=== PATIENT | male | born 1950 | race Asian ===

== ENCOUNTER 2016-10-19 04:05 | Inpatient (IN) | payer BC, MEDICAID ==
[~2016-10-19] VITALS: Ht 154.9 cm; Wt 86.2 kg
[~2016-10-19 04:05] MED LIST: AMLO10TA PO; ATOR20TA PO; COZ50 PO; GABA100C PO; METH500T14 PO; METO100T98 PO; PIOG30TA PO; RANI-287 PO
[2016-10-19 04:15] VITALS: BP 125/73
--- NOTE | 2016-10-19 04:30 | NUR ---
PT IS 66/M BIB TO ED WITH C/O DIZZINESS WITH NAUSEA X 1 HR. AFTER GET UP FROM BED, HAVING DIZZINESS WITH NAUSEA.PT STATES MED HX. HTN, DM.. DENIES V/D; SKIN IS PINK/WARM/DRY; AAOX4 WITH EVEN AND STEADY GAIT; LUNGS CLEAR BL; HR EVEN AND REGULAR; PT DENIES ANY FEVER, CP, SOB, OR COUGH AT THIS TIME; PATIENT STATES PAIN OF 4/10 AT THIS TIME; VSS; PATIENT POSITIONED FOR COMFORT; HOB ELEVATED; BEDRAILS UP X2; BED DOWN. ER MD MADE AWARE OF PT STATUS.
[2016-10-19] MEDS ORDERED: ONDANSETRON 4 MG/2 ML VIAL IVP ONE (04:45)
[2016-10-19] MEDS ORDERED: NACL 0.9% 1,000 ML IV ONE (04:45)
[2016-10-19 05:01] LABS: EOSINOPHILS # (AUTO) 0.3 K/uL (0-0.4); RED BLOOD CELL COUNT(AUTO) 2.85 MIL/uL (4.20-6.10)
[2016-10-19 05:06] LABS: BASOPHILS # (AUTO) 0.2 K/uL (0.00-0.22); BASOPHILS % (AUTO) 2.3 % (0.0-2.0); EOSINOPHILS % (AUTO) 3.4 % (0.0-4.0); LYMPHOCYTES # (AUTO) 1.5 K/uL (2.0-11.5); LYMPHOCYTES % (AUTO) 17.3 % (20.5-51.1); MEAN CORPUSCULAR HEMOGLOBIN 21 pg (27-31); MEAN CORPUSCULAR HGB CONC 31 g/dL (33-37); MEAN CORPUSCULAR VOLUME 67 fL (80-94); MONOCYTES # (AUTO) 0.4 K/uL (0.8-1.0); MONOCYTES % (AUTO) 5.2 % (1.7-9.3); NEUTROPHILS # (AUTO) 6.1 K/uL (1.8-7.7); NEUTROPHILS % (AUTO) 71.8 % (42.2-75.2); PLATELET COUNT (AUTO) 327 K/uL (140-450); RED CELL DISTRIBUTION WIDTH 18.9 % (11.6-13.7); WHITE BLOOD COUNT (AUTO) 8.5 K/uL (4.8-10.8)
--- NOTE | 2016-10-19 05:29 | NUR ---
PT TAKEN OFF THE UNIT VIA GURNEY TO CT WITH GENERAL UTILITY MAINTENANCE REPAIRER.
[2016-10-19 05:34] LABS: HEMATOCRIT 19.2 % (36-52)
[2016-10-19 05:45] LABS: CREATINE KINASE MB 0.7 ng/mL (0-3.6)
[2016-10-19 05:46] LABS: ANION GAP 9.6 (8-16); CARBON DIOXIDE 27.9 mmol/L (21-32); POTASSIUM 4.5 mmol/L (3.5-5.1)
[2016-10-19 05:48] LABS: CREATININE 1.3 mg/dL (0.6-1.3); TOTAL BILIRUBIN 0.3 mg/dL (0.0-1.0)
[2016-10-19 05:49] LABS: ALBUMIN 3.1 g/dL (3.4-5.0); FREE T4 (FREE THYROXINE) 1.04 ng/dL (0.76-1.46); THYROID STIMULATING HORMONE 1.63 uIU/mL (0.34-3.76); TOTAL PROTEIN, SERUM 6.3 g/dL (6.4-8.2)
--- NOTE | 2016-10-19 05:50 | NUR ---
PT BACK ON UNIT FROM CT
[2016-10-19] MEDS ORDERED: ONDANSETRON 4 MG/2 ML VIAL IVP PRN (06:20)
[2016-10-19] MEDS: NACL 0.9% 1,000 ML IV SCH ×2 (06:20→19:19)
[2016-10-19] MEDS ORDERED: ZOLPIDEM 5 MG TAB PO PRN (06:20)
[2016-10-19] MEDS ORDERED: ACETAMINOPHEN 325 MG TAB PO PRN (06:20)
[2016-10-19] MEDS ORDERED: HYDROcodone/APAP 5/325 MG 1 TAB TAB PO PRN (06:20)
[2016-10-19] MEDS ORDERED: ASPIRIN 325 MG TAB PO ONE (06:30)
[2016-10-19 07:10] LABS: MAGNESIUM 2.1 mg/dL (1.8-2.4); PHOSPHORUS 3.1 mg/dL (2.5-4.9); THYROID STIMULATING HORMONE 1.42 uIU/mL (0.34-3.76)
--- NOTE | 2016-10-19 07:15 | NUR ---
CALLED [facility] TO GIVE REPORT. WAS TOLD ROOM AND NURSE IS NOT READY AT THIS TIME AND WILL CALL US BACK IN 10 MIN. WILL FOLLOW UP.
--- NOTE | 2016-10-19 07:30 | NUR ---
RECEIVED PT ON UNIT VIA FAYE FROM ER, PT IS A/OX4, IV IS ON THE RT AND LT FA, PATENT, INTACT, FLUSHING WELL, SKIN IS INTACT, NO S/S OF RESPIRATORY DISTRESS OR DISCOMFORT NOTED, ORIENTED PT TO ROOM, SAFETY/FALL PRECAUTIONS IN PLACE, DISCUSSED PLAN OF CARE WITH PT, PT VERBALIZED UNDERSTANDING, IS AT BEDSIDE, CALL LIGHT IS WITHIN REACH WILL CONTINUE TO MONITOR.
--- NOTE | 2016-10-19 07:30 | NUR ---
ENDORSED PT TO ZAIRA RUVALCABA. PT STABLE AT THIS TIME. Addendum: 10/19/16 at 2007 by Demi Urias RN PT WAS ENDORSED AT 1930 TO ZAIRA RUVALCABA.
--- NOTE | 2016-10-19 07:31 | NUR ---
Patient will be admitted to care of DR SALVADOR. Admited to TELE. Will go to room 107B. Belongings list completed. Report to ZAIRA BERNAL.
[2016-10-19 08:00] VITALS: BP 127/73
[2016-10-19] MEDS ORDERED: DOCUSATE SODIUM 100 MG GELCAP PO SCH (09:00)
--- NOTE | 2016-10-19 09:30 | NUR ---
PT RESTING IN BED, IS AT BEDSIDE, CALL LIGHT WITHIN REACH, WILL CONTINUE TO MONITOR.
--- NOTE | 2016-10-19 09:52 | NUR ---
PATIENT HAS BEEN SCREENED AND CATEGORIZED MODERATE NUTRITION RISK. PATIENT WILL BE SEEN WITHIN 3-5 DAYS OF ADMISSION. 10/21/16-10/23/[address]
[2016-10-19] MEDS ORDERED: BISACODYL 10 MG SUPP RC SCH (10:00)
[2016-10-19] MEDS: PANTOPRAZOLE 40 MG TABEC PO SCH ×2 (11:27→20:32)
[2016-10-19 12:00] VITALS: BP 143/68
--- NOTE | 2016-10-19 12:00 | NUR ---
PT IS SLEEPING IN BED AT THIS TIME.
[2016-10-19] MEDS ORDERED: NITROGLYCERIN 0.4 MG TAB SL PRN (12:20)
[2016-10-19] MEDS ORDERED: amLODIPine 5 MG TAB PO PRN (12:20)
[2016-10-19] MEDS: GABAPENTIN 100 MG CAP PO SCH ×2 (13:29→17:03)
[2016-10-19] MEDS ORDERED: INSULIN LISPRO SLIDING SCALE 100 UNITS/ML VIAL SUBQ PRN (14:00)
[2016-10-19] MEDS ORDERED: DEXTROSE 50% 50 ML SYR IVP PRN (14:00)
--- NOTE | 2016-10-19 14:30 | NUR ---
PT IS RESTING IN BED, FRIEND IS AT BEDSIDE, BLOOD TRANSFUSION RUNNING WELL, NO ADVERSE REACTIONS NOTED, CALL LIGHT WITHIN REACH WILL CONTINUE TO MONITOR.
[2016-10-19 16:00] VITALS: BP 130/77
--- NOTE | 2016-10-19 16:40 | NUR ---
THE 2 UNITS OF PRBC ARE COMPLETED AT THIS TIME, PT TOLERATED WELL, NO ADVERSE REACTION.
[2016-10-19] MEDS: BLOOD GLUCOSE MONITORING 1 DEV DEV FS SCH ×2 (16:49→20:32)
[2016-10-19] MEDS: metFORMIN 500 MG TAB PO SCH (17:03)
--- NOTE | 2016-10-19 19:30 | NUR ---
RECEIVED REPORT FROM DOLORES MENESES AT BEDSIDE. PT IS ALERT AWAKE ORIENTED X4. INITIAL ASSESSMENT DONE. NO S/S OF RESPIRATORY DISTRESS OR SOB NOTED. NO C/O PAIN OR ANY DISCOMFORT AT THIS TIME. PLAN OF CARE REVIEWED TO PT AND FAMILY AT BEDSIDE AND VERBALIZED UNDERSTANDING. CALL LIGHT WITHIN REACH. WILL CONTINUE TO MONITOR.
--- NOTE | 2016-10-19 19:30 | NUR ---
PT ENDORSED TO ZAIRA RUVALCABA. PT STABLE AT THIS TIME, IS AT BEDSIDE.
[2016-10-19] MEDS ORDERED: FERRIC GLUCONATE 125 MG in NACL 0.9% 100 ML IV SCH (19:35)
--- NOTE | 2016-10-19 19:40 | NUR ---
DR. Fred GIRON CAME TO SEE PT AND NEW ORDERS WERE GIVEN. NEW ORDERS NOTED AND CARRIED OUT. WILL CONTINUE TO MONITOR.
[2016-10-19 20:00] VITALS: BP 125/76
[2016-10-19] MEDS: ATORVASTATIN 20 MG TAB PO SCH (20:32)
[2016-10-19] MEDS ORDERED: METHOCARBAMOL 500 MG TAB PO SCH (21:00)
[2016-10-19] MEDS ORDERED: RANITIDINE HCL 300 MG PO SCH (21:00)
[2016-10-19] MEDS ORDERED: METOPROLOL 25 MG TAB PO SCH (21:00)
[2016-10-19 22:29] LABS: BASOPHILS # (AUTO) 0.1 K/uL (0.00-0.22); BASOPHILS % (AUTO) 0.8 % (0.0-2.0); EOSINOPHILS # (AUTO) 0.3 K/uL (0-0.4); EOSINOPHILS % (AUTO) 3.2 % (0.0-4.0); HEMATOCRIT 26.1 % (36-52); HEMOGLOBIN 8.2 g/dL (12.0-18.0); LYMPHOCYTES # (AUTO) 1.7 K/uL (2.0-11.5); LYMPHOCYTES % (AUTO) 19.1 % (20.5-51.1); MEAN CORPUSCULAR HEMOGLOBIN 23 pg (27-31); MEAN CORPUSCULAR HGB CONC 31 g/dL (33-37); MEAN CORPUSCULAR VOLUME 74 fL (80-94); MONOCYTES # (AUTO) 0.6 K/uL (0.8-1.0); MONOCYTES % (AUTO) 6.9 % (1.7-9.3); NEUTROPHILS # (AUTO) 5.9 K/uL (1.8-7.7); PLATELET COUNT (AUTO) 322 K/uL (140-450); RED BLOOD CELL COUNT(AUTO) 3.54 MIL/uL (4.20-6.10); RED CELL DISTRIBUTION WIDTH 21.5 % (11.6-13.7); WHITE BLOOD COUNT (AUTO) 8.6 K/uL (4.8-10.8)
[2016-10-19] MEDS: METOCLOPRAMIDE 10 MG/2 ML INJ VIAL IVP SCH (23:59)
[2016-10-20] VITALS: BP 122/72
[2016-10-20 00:34] LABS: APPEARANCE,URINE CLEAR (CLEAR); BILIRUBIN,URINE NEGATIVE (NEGATIVE); BLOOD, URINE NEGATIVE (NEGATIVE); LEUKOCYTE ESTERASE ,URINE NEGATIVE (NEGATIVE); NITRITE, URINE NEGATIVE (NEGATIVE); PROTEIN,URINE NEGATIVE (NEGATIVE); UGLUCOSE NEGATIVE (NEGATIVE); UROBILINOGEN,URINE 0.2 EU/dL (0.2 - 1)
[2016-10-20 00:35] LABS: COLOR,URINE STRAW (YELLOW); RBC,URINE NONE SEEN /HPF (0-5); WBC,URINE NONE SEEN /HPF (0-5)
[2016-10-20 00:36] LABS: BACTERIA,URINE None Seen /HPF (None Seen); SQUAMOUS EPITHELIAL CELL,UR None Seen /LPF (0-3 (FEW))
--- NOTE | 2016-10-20 01:30 | NUR ---
RECEIVED REPORT FROM ZAIRA RUVALCABA. INITIAL ASSESSMENT COMPLETED. PT AAOX4. PT'S SKIN INTACT. PT HAS IV TO LEFT AC G 22 AND RIGHT AC G 18 INFUSING FLUIDS WELL. PT LAYING IN BED NOW. ORIENTED PT TO ROOM AND SURROUNDINGS AND USE OF CALL LIGHT. EXPLAINED PLAN OF CARE TO PT. SAFETY MEASURES IN PLACE. WILL CONTINUE TO MONITOR PT.
--- NOTE | 2016-10-20 01:35 | NUR ---
PT HAS NO S/S OF ANY DISCOMFORT. PLAN OF CARE ENDORSED TO GATO LEIGH RN AT BEDSIDE FOR CONTINUITY OF CARE.
--- NOTE | 2016-10-20 03:30 | NUR ---
PT SLEEPING AT THIS TIME. NO SIGNS OF DISTRESS NOTED, WILL CONTINUE TO MONITOR PT.
[2016-10-20 04:00] VITALS: BP 129/71
--- NOTE | 2016-10-20 04:32 | NUR ---
ROUNDS MADE. VS STABLE, WILL CONTINUE TO MONITOR PT.
[2016-10-20] MEDS: METOCLOPRAMIDE 10 MG/2 ML INJ VIAL IVP SCH ×3 (05:37→17:29)
[2016-10-20] MEDS: BLOOD GLUCOSE MONITORING 1 DEV DEV FS SCH ×4 (06:42→20:44)
--- NOTE | 2016-10-20 07:19 | NUR ---
REPORT GIVEN TO DAY SHIFT RN. PT IN STABLE CONDITION.
[2016-10-20 07:20] LABS: FERRITIN 7 ng/mL (30-400); TRANSFERRIN 305 mg/dL (200-370)
--- NOTE | 2016-10-20 07:20 | NUR ---
RECEIVED PT ASLEEP BUT EASILY AROUSABLE, AAOX4, SKIN INTACT, WITH NO S/S OF RESPIRATORY DISTRESS OR DISCOMFORT, WITH IV ACCESS AT RIGHT FOREARM G18 INFUSING FLUIDS WELL. ALSO WITH IV ACCESS AT LEFT AC 22G ON SALINE LOCK PATENT AND INTACT. DISCUSSED PLAN OF CARE. PT VERBALIZED UNDERSTANDING. INFORMED REGARDING EGD FOR TODAY. KEPT PT ON NPO. CALL LIGHT WITHIN REACH, WILL CONTINUE TO MONITOR
--- NOTE | 2016-10-20 07:45 | NUR ---
PT LEFT UNIT FOR EGD ACCOMPANIED BY OR NURSES. PT STABLE
[2016-10-20 08:00] VITALS: BP 121/65
[2016-10-20] MEDS ORDERED: fentaNYL 0.05 MG/ML VIAL ONE (08:03)
[2016-10-20] MEDS ORDERED: diphenhydrAMINE 50 MG/ML VIAL ONE (08:04)
[2016-10-20] MEDS ORDERED: MIDAZOLAM 2 MG/2 ML VIAL ONE (08:04)
[2016-10-20] MEDS ORDERED: MIDAZOLAM 2 MG/2 ML VIAL IVP ONE (08:08)
[2016-10-20] MEDS: NACL 0.9% 1,000 ML IV SCH (08:19)
[2016-10-20] MEDS ORDERED: ATORVASTATIN 20 MG TAB PO SCH (09:00)
[2016-10-20] MEDS ORDERED: METOPROLOL 50 MG TAB PO SCH (09:00)
[2016-10-20] MEDS ORDERED: LOSARTAN 50 MG TAB PO SCH (09:00)
[2016-10-20] MEDS ORDERED: SENNA 8.6 MG TAB PO SCH (09:00)
--- NOTE | 2016-10-20 09:00 | NUR ---
PT BACK FROM OR IN STABLE CONDITION. PT ASLEEP BUT EASILY AROUSABLE, WILL CONTINUE TO MONITOR
[2016-10-20] MEDS: FERRIC GLUCONATE 125 MG in NACL 0.9% 100 ML IV SCH (09:19)
[2016-10-20] MEDS: SENNA 8.6 MG TAB PO SCH ×3 (09:49→17:28)
[2016-10-20] MEDS: ATENOLOL 50 MG TAB PO SCH (09:49)
[2016-10-20] MEDS: PIOGLITAZONE 30 MG TAB PO SCH (09:49)
[2016-10-20] MEDS: PANTOPRAZOLE 40 MG TABEC PO SCH (09:49)
[2016-10-20] MEDS: GABAPENTIN 100 MG CAP PO SCH ×3 (09:51→17:27)
[2016-10-20] MEDS: LOSARTAN 50 MG TAB PO SCH (09:53)
--- NOTE | 2016-10-20 09:55 | NUR ---
DUE MEDS GIVEN, PT TOLERATED WELL. WILL CONTINUE TO MONITOR
--- NOTE | 2016-10-20 11:28 | NUR ---
PT AWAKE, WITH AT BEDSIDE. WILL CONTINUE TO MONITOR
--- NOTE | 2016-10-20 11:30 | NUR ---
ASKED PT IF HE WOULD CONSIDER COLONOSCOPY PER DR GIRON, PT REFUSED, STATED THAT HE JUST HAD COLONOSCOPY 3 YEARS AGO.
[2016-10-20 12:00] VITALS: BP 113/70
--- NOTE | 2016-10-20 13:40 | NUR ---
PT ASLEEP, WITH NO S/S OF DISTRESS. AT BEDSIDE. CALL LIGHT WITHIN REACH, WILL CONTINUE TO MONITOR
[2016-10-20 14:42] LABS: BASOPHILS # (AUTO) 0.1 K/uL (0.00-0.22); BASOPHILS % (AUTO) 1.2 % (0.0-2.0); EOSINOPHILS # (AUTO) 0.3 K/uL (0-0.4); EOSINOPHILS % (AUTO) 3.6 % (0.0-4.0); HEMATOCRIT 25.2 % (36-52); LYMPHOCYTES # (AUTO) 1.4 K/uL (2.0-11.5); LYMPHOCYTES % (AUTO) 18.6 % (20.5-51.1); MEAN CORPUSCULAR HEMOGLOBIN 23 pg (27-31); MEAN CORPUSCULAR HGB CONC 32 g/dL (33-37); MEAN CORPUSCULAR VOLUME 74 fL (80-94); MONOCYTES # (AUTO) 0.5 K/uL (0.8-1.0); MONOCYTES % (AUTO) 6.6 % (1.7-9.3); NEUTROPHILS # (AUTO) 5.1 K/uL (1.8-7.7); PLATELET COUNT (AUTO) 313 K/uL (140-450); RED BLOOD CELL COUNT(AUTO) 3.41 MIL/uL (4.20-6.10); RED CELL DISTRIBUTION WIDTH 21.3 % (11.6-13.7); WHITE BLOOD COUNT (AUTO) 7.4 K/uL (4.8-10.8)
--- NOTE | 2016-10-20 14:43 | NUR ---
DR NASSAR AT BEDSIDE
[2016-10-20 15:03] LABS: ANION GAP 10.7 (8-16); CARBON DIOXIDE 26.3 mmol/L (21-32); CREATININE 1.3 mg/dL (0.6-1.3)
[2016-10-20 15:08] LABS: PHOSPHORUS 3.6 mg/dL (2.5-4.9)
[2016-10-20 16:00] VITALS: BP 131/63
--- NOTE | 2016-10-20 16:51 | NUR ---
PT ASLEEP BUT EASILY AROUSABLE, RELATIVES AT BEDSIDE. VS AND BLOOD SUGAR ARE STABLE. WILL CONTINUE TO MONITOR
[2016-10-20] MEDS: metFORMIN 500 MG TAB PO SCH (17:27)
--- NOTE | 2016-10-20 18:26 | NUR ---
PT AWAKE WITH TENTMAKER AND LUTHERAN MEMBERS AT THE BEDSIDE PRAYING. NO S/S OF DISTRESS. ALL NEEDS ATTENDED. WILL CONTINUE TO MONITOR
--- NOTE | 2016-10-20 19:30 | NUR ---
RECEIVED PT IN STABLE CONDITION FROM AM NURSE. AWAKE,ALERT AND ORIENTED X4. ON TELE MONITOR . WITH NO C/O ANY DISCOMFORT NOR PAIN NOTED. IVF INFUSING WELL ON THE LT AC #24. HL ON RT FA#[id number]. BOTH PATENT. PLAN OF CARE DISCUSSED AND VERBALIZED UNDERSTANDING. CALL LIGHT AND URINAL PLACED WITHIN EASY REACH. WILL CONTINUE TO MONITOR.
[2016-10-20] MEDS ORDERED: FERRIC GLUCONATE 125 MG in NACL 0.9% 100 ML IV SCH (19:35)
--- NOTE | 2016-10-20 19:39 | NUR ---
ENDORSED PT TO ZAIRA VERMA FOR CONTINUITY OF CARE IN STABLE CONDITION
[2016-10-20 19:50] VITALS: BP 146/79
[2016-10-20] MEDS: ATORVASTATIN 20 MG TAB PO SCH (20:25)
--- NOTE | 2016-10-20 20:44 | NUR ---
BLOOD SUGAR WAS CHECKED RESULT 139. NO INSULIN NEEDED.
--- NOTE | 2016-10-20 22:00 | NUR ---
MADE ROUNDS .PT IS SLEEPING WELL WITH NO S/S OF ANY DISCOMFORT NOTED.
[2016-10-21 00:15] VITALS: BP 134/67
--- NOTE | 2016-10-21 00:30 | NUR ---
ASLEEP. NO S/S FO ANY DISCOMFORT NOR PAIN . WILL CONTINUE TO MONITOR.
[2016-10-21] MEDS: METOCLOPRAMIDE 10 MG/2 ML INJ VIAL IVP SCH ×4 (01:50→11:04)
--- NOTE | 2016-10-21 02:30 | NUR ---
ASLEEP. NO S/S OF ANY DISCOMFORT NOTED. WILL CONTINUE TO MONITOR.
[2016-10-21 04:10] VITALS: BP 118/70
--- NOTE | 2016-10-21 04:10 | NUR ---
AWAKE. NO C/O OF ANY DISCOMFORT NOR PAIN NOTED.
--- NOTE | 2016-10-21 06:00 | NUR ---
PT REFUSED BLOOD DRAW THIS AM. EXPLAINED TO HIM THAT THEY WILL COME BACK LATER TO TRY AGAIN.
[2016-10-21] MEDS: BLOOD GLUCOSE MONITORING 1 DEV DEV FS SCH ×2 (06:15→11:31)
--- NOTE | 2016-10-21 07:20 | NUR ---
RECEIVED PT REPORT AT BEDSIDE. PT IS AOX4. PT IS SLEEPING IN BED AND SHOWS NO S/S OF DISTRESS. PT HAS NOTED IV ON THE L AC. PT IS ON ROOM AIR. SKIN IS INTACT. PT DENIES PAIN. BED IS LOWERED WITH CALL LIGHT WITHIN REACH.
--- NOTE | 2016-10-21 07:38 | NUR ---
ENDORSED PT IN STABLE CONDITION TO AM NURSE.
[2016-10-21 08:00] VITALS: BP 134/54
[2016-10-21] MEDS: PIOGLITAZONE 30 MG TAB PO SCH (08:26)
[2016-10-21] MEDS: LOSARTAN 50 MG TAB PO SCH (08:26)
[2016-10-21] MEDS: SENNA 8.6 MG TAB PO SCH ×2 (08:26→12:50)
[2016-10-21] MEDS: ATENOLOL 50 MG TAB PO SCH (08:27)
[2016-10-21] MEDS: PANTOPRAZOLE 40 MG TABEC PO SCH (08:27)
[2016-10-21] MEDS: GABAPENTIN 100 MG CAP PO SCH ×2 (08:27→12:50)
--- NOTE | 2016-10-21 08:30 | NUR ---
ADMINISTERED SCHEDULED MEDICATIONS. PT TOLERATED WELL. NOTED IV ON THE L AC IS LEAKING AND WAS DISCONTINUED. IV MEDICATION WAS HELD UNTIL NEW IV LINE WAS DONE.
--- NOTE | 2016-10-21 10:15 | NUR ---
PT IS IN BED AND SHOWS NO S/S OF DISTRESS. NEW IV LINE WAS DONE BY ED STUDENT NURSE ON THE R HAND 22 GAUGE WITH RN SUPERVISION. IV MEDICATION WAS ADMINISTERED. IV IS PATENT AND INTACT. WILL CONTINUE TO MONITOR.
[2016-10-21 10:38] LABS: BASOPHILS # (AUTO) 0.1 K/uL (0.00-0.22); BASOPHILS % (AUTO) 0.7 % (0.0-2.0); EOSINOPHILS # (AUTO) 0.3 K/uL (0-0.4); EOSINOPHILS % (AUTO) 3.8 % (0.0-4.0); HEMATOCRIT 28.6 % (36-52); HEMOGLOBIN 8.9 g/dL (12.0-18.0); LYMPHOCYTES # (AUTO) 1.5 K/uL (2.0-11.5); LYMPHOCYTES % (AUTO) 19.9 % (20.5-51.1); MEAN CORPUSCULAR HEMOGLOBIN 23 pg (27-31); MEAN CORPUSCULAR HGB CONC 31 g/dL (33-37); MEAN CORPUSCULAR VOLUME 74 fL (80-94); MONOCYTES # (AUTO) 0.5 K/uL (0.8-1.0); MONOCYTES % (AUTO) 6.6 % (1.7-9.3); NEUTROPHILS # (AUTO) 5.2 K/uL (1.8-7.7); PLATELET COUNT (AUTO) 350 K/uL (140-450); RED BLOOD CELL COUNT(AUTO) 3.87 MIL/uL (4.20-6.10); RED CELL DISTRIBUTION WIDTH 21.6 % (11.6-13.7); WHITE BLOOD COUNT (AUTO) 7.6 K/uL (4.8-10.8)
[2016-10-21] MEDS: FERRIC GLUCONATE 125 MG in NACL 0.9% 100 ML IV SCH (10:43)
[2016-10-21 10:50] LABS: ANION GAP 10.6 (8-16); CALCIUM 8.6 mg/dL (8.5-10.1); CREATININE 1.4 mg/dL (0.6-1.3); POTASSIUM 3.6 mmol/L (3.5-5.1)
[2016-10-21 10:53] LABS: MAGNESIUM 1.8 mg/dL (1.8-2.4); PHOSPHORUS 4.1 mg/dL (2.5-4.9)
--- NOTE | 2016-10-21 11:10 | NUR ---
ADMINISTERED SCHEDULED MEDICATION. PT IS SLEEPING AND DENIES PAIN. PT SHOWS NO S/S OF DISTRESS.
[2016-10-21 11:57] VITALS: BP 128/67
[2016-10-21] MEDS ORDERED: FERR-193 PO (12:03)
[2016-10-21] MEDS ORDERED: ASCO-166 PO (12:03)
--- NOTE | 2016-10-21 13:00 | NUR ---
PT RESTING IN BED WITH FAMILY MEMBER AT BEDSIDE. PT SHOWS NO S/S OF DISTRESS WILL CONTINUE TO MONITOR.
[2016-10-21] MEDS ORDERED: PIOG30TA28 PO (14:00)
[2016-10-21] MEDS ORDERED: GABA100C PO (14:00)
[2016-10-21] MEDS ORDERED: ATOR20TA PO (14:00)
[2016-10-21] MEDS ORDERED: AMLO10TA PO (14:00)
[2016-10-21] MEDS ORDERED: LOSA100T25 PO (14:00)
--- NOTE | 2016-10-21 14:55 | NUR ---
PT HAS BEEN DISCHARGED. ALL DISCHARGE PAPERWORK INSTRUCTIONS GIVEN AND SIGNED. ALL QUESTIONS ANSWERED. ALL BELONGINGS IN PATIENTS POSSESSION. IV DISCONTINUED WITH CANNULA INTACT. WRISTBANDS AND TELE MONITOR REMOVED. OFFERED PT WHEELCHAIR, PT REFUSED. PT AMB OUT OF UNIT WITH STEADY GAIT WITH FAMILY PRESENT AT SIDE. PATIENT IN STABLE CONDITION.
== END 2016-10-21 14:55 | disposition home or self-care (01) | DRG 241 ==
LOC: MED 04:05 → MTU 06:24
PROVIDERS: ADMIT Family Medicine; ATTEND Family Medicine
PROC: 30233N1 Transfusion of Nonautologous Red Blood Cells into Peripheral Vein, Percutaneous Approach (ICD-10-PCS; principal; 2016-10-19)
PROC: 0DB78ZX Excision of Stomach, Pylorus, Via Natural or Artificial Opening Endoscopic, Diagnostic (ICD-10-PCS; 2016-10-20)
DX: K29.01 Acute gastritis with bleeding (principal); N17.0 Acute kidney failure with tubular necrosis; E44.0 Moderate protein-calorie malnutrition; E11.51 Type 2 diabetes mellitus with diabetic peripheral angiopathy without gangrene; I42.2 Other hypertrophic cardiomyopathy; D62 Acute posthemorrhagic anemia; K76.0 Fatty (change of) liver, not elsewhere classified; I10 Essential (primary) hypertension; D50.9 Iron deficiency anemia, unspecified; E78.5 Hyperlipidemia, unspecified; E66.9 Obesity, unspecified; R74.8 Abnormal levels of other serum enzymes; M19.90 Unspecified osteoarthritis, unspecified site; T39.395A Adverse effect of other nonsteroidal anti-inflammatory drugs [NSAID], initial encounter; Z88.0 Allergy status to penicillin; Z88.2 Allergy status to sulfonamides; Z68.35 Body mass index [BMI] 35.0-35.9, adult; Z79.899 Other long term (current) drug therapy; Z90.49 Acquired absence of other specified parts of digestive tract
CPT/HCPCS: 36415; 70450; 71010; 80048; 80053; 81001; 82550; 82553; 82728; 82948; 83036; 83540; 83690; 83735; 84100; 84439; 84443; 84484; 85025; 85045; 86677; 86886; 86900; 86901; 86920; 87081; 87086; 93005; 93925; 93970; 96361; 96374; 99285; J1200; J1815; J2250; J2405; J2765; J2916; J3010; J7030; P9016; Q0092